=== PATIENT | female | born 1960 | race African-American/Black ===

== ENCOUNTER 2017-05-12 15:03 | Emergency (ER) | payer MEDICAID ==
[~2017-05-12] VITALS: Ht 152.4 cm; Wt 98.0 kg
[~2017-05-12 15:03] MED LIST: ALBU17AE26; AMLO5TAB4; COLC0.6T66; FLUT1DIS3; HYDR-1348; OMEP20CA4; VIC
[2017-05-12] MEDS ORDERED: KETOROLAC 60MG/2ML VIAL IM STA (20:46)
[2017-05-12 21:36] LABS: BASOPHILS % 1.1 % (0.0-2.0); EOSINOPHILS % 1.9 % (0.0-5.0); HEMATOCRIT. 41.4 % (36.0-48.0); HEMOGLOBIN. 14.2 g/dL (12.0-16.0); LYMPHOCYTES % 37.7 % (20.0-50.0); MEAN CORPUSCULAR HEMOGLOBIN 31.6 pg (28.0-32.0); MEAN CORPUSCULAR VOLUME 92.3 fL (81.0-99.0); MEAN PLATELET VOLUME 9.1 fl (7.4-10.4); MONOCYTES % 8.4 % (2.0-8.0); NEUTROPHILS % 50.9 % (40.0-76.0); PLATELET 188 x1000/uL (130-400); RED BLOOD CELL COUNT 4.49 mill/uL (4.2-5.4); RED CELL DISTRIBUTION WIDTH 13.9 % (11.6-14.6)
[2017-05-12 21:42] LABS: PROTHROMBIN TIME 10.2 sec (9.4-11.6)
[2017-05-12 21:44] LABS: CHLORIDE 106 mEq/L (98-107)
[2017-05-12 21:54] LABS: CARBON DIOXIDE 28 mEq/L (21-32); TROPONIN I < 0.02 ng/mL (0.00-0.04)
[2017-05-12 22:40] LABS: CLARITY URINE CLOUDY (CLEAR); COLOR URINE YELLOW (YELLOW); GLUCOSE URINE NEGATIVE (NEGATIVE); KETONES URINE NEGATIVE (NEGATIVE); LEUKOCYTE ESTERASE URINE 3+ (NEGATIVE); NITRITE URINE NEGATIVE (NEGATIVE); OCCULT BLOOD URINE 2+ (NEGATIVE); PROTEIN URINE NEGATIVE (NEGATIVE)
[2017-05-12 23:40] VITALS: BP 129/82
== END 2017-05-12 23:50 | disposition home or self-care (01) ==
LOC: ER 22:28
DX: R07.89 Other chest pain (principal); J01.90 Acute sinusitis, unspecified; N39.0 Urinary tract infection, site not specified; R51 Headache; I10 Essential (primary) hypertension; J45.909 Unspecified asthma, uncomplicated; F17.210 Nicotine dependence, cigarettes, uncomplicated; Z87.19 Personal history of other diseases of the digestive system
CPT/HCPCS: 36415; 71010; 80053; 81001; 83880; 84484; 85025; 85610; 93005; 96372; 99285; J1885; Z7610

== ENCOUNTER 2017-10-22 18:12 | Emergency (ER) | payer MEDICAID, OTHER ==
[~2017-10-22] VITALS: Ht 160 cm; Wt 103.0 kg
[2017-10-22 20:14] VITALS: BP 121/79
[2017-10-22] MEDS: ACETAMINOPHEN 325MG TABLET PO ONE (20:47)
[2017-10-22 21:33] LABS: EOSINOPHILS % 2.1 % (0.0-5.0); HEMATOCRIT. 38.8 % (36.0-48.0); HEMOGLOBIN. 12.9 g/dL (12.0-16.0); LYMPHOCYTES % 39.1 % (20.0-50.0); MEAN CORPUSCULAR HEMOGLOBIN 30.4 pg (28.0-32.0); MEAN CORPUSCULAR VOLUME 91.4 fL (81.0-99.0); MEAN PLATELET VOLUME 8.6 fl (7.4-10.4); MONOCYTES % 7.5 % (2.0-8.0); NEUTROPHILS % 50.3 % (40.0-76.0); PLATELET 195 x1000/uL (130-400); RED BLOOD CELL COUNT 4.24 mill/uL (4.2-5.4); RED CELL DISTRIBUTION WIDTH 13.7 % (11.6-14.6)
[2017-10-22 21:38] LABS: CARBON DIOXIDE 25 mEq/L (21-32); CHLORIDE 107 mEq/L (98-107)
== END 2017-10-22 22:50 | disposition home or self-care (01) ==
LOC: ER 19:25
DX: J20.9 Acute bronchitis, unspecified (principal); J45.909 Unspecified asthma, uncomplicated; I10 Essential (primary) hypertension; F17.200 Nicotine dependence, unspecified, uncomplicated; G43.909 Migraine, unspecified, not intractable, without status migrainosus
CPT/HCPCS: 36415; 71045; 80048; 85025; 87804; 93005; 99285

== ENCOUNTER 2018-03-03 13:23 | Emergency (ER) | payer MEDICAID, OTHER ==
[~2018-03-03] VITALS: Ht 172.7 cm; Wt 100.0 kg
[2018-03-03 15:21] LABS: BASOPHILS % 0.7 % (0.0-2.0); EOSINOPHILS % 1.3 % (0.0-5.0); HEMATOCRIT. 38.5 % (36.0-48.0); LYMPHOCYTES % 37.2 % (20.0-50.0); MEAN CORPUSCULAR HEMOGLOBIN 30.8 pg (28.0-32.0); MEAN CORPUSCULAR VOLUME 91.7 fL (81.0-99.0); MEAN PLATELET VOLUME 8.9 fl (7.4-10.4); MONOCYTES % 6.1 % (2.0-8.0); NEUTROPHILS % 54.7 % (40.0-76.0); PLATELET 181 x1000/uL (130-400); RED CELL DISTRIBUTION WIDTH 14.2 % (11.6-14.6)
[2018-03-03 15:25] LABS: CHLORIDE 107 mEq/L (98-107)
[2018-03-03 15:30] LABS: PARTIAL THROMBOPLASTIN TIME 24.6 sec (23.4-31.0); PROTHROMBIN TIME 10.5 sec (9.4-11.6)
[2018-03-03] MEDS ORDERED: NICOTINE 21MG PATCH TD ONE (15:30)
[2018-03-03 15:35] LABS: CLARITY URINE CLEAR (CLEAR); COLOR URINE YELLOW (YELLOW); KETONES URINE NEGATIVE (NEGATIVE); LEUKOCYTE ESTERASE URINE NEGATIVE (NEGATIVE); NITRITE URINE NEGATIVE (NEGATIVE); OCCULT BLOOD URINE TRACE (NEGATIVE); PH URINE 6.5 (4.5-8.0); PROTEIN URINE NEGATIVE (NEGATIVE); SPECIFIC GRAVITY URINE 1.017 (1.005-1.030)
[2018-03-03] MEDS: ONDANSETRON HCL 4MG/2ML VIAL IV STA ×2 (15:45→16:00)
[2018-03-03] MEDS: MORPHINE SULFATE 4 MG/ML CPJ (NOT FOR IM USE) IV STA ×2 (15:45→16:00)
[2018-03-03] MEDS: SODIUM CHLORIDE 0.9% 1,000 ML IV ONE ×2 (15:45→16:00)
[2018-03-03] MEDS: KETOROLAC 30MG/ML VIAL IV STA ×2 (15:45→16:00)
[2018-03-03 15:49] LABS: ETHANOL BLOOD < 10 mg/dL
[2018-03-03 15:50] LABS: *BENZODIAZEPINES SCREEN URINE NEGATIVE (NEGATIVE); *COCAINE SCREEN URINE NEGATIVE (NEGATIVE)
[2018-03-03 15:51] LABS: *AMPHETAMINES SCREEN URINE NEGATIVE (NEGATIVE); *BARBITURATES SCREEN URINE NEGATIVE (NEGATIVE); CANNABINOID URINE SCREEN NEGATIVE (NEGATIVE); METHADONE URINE SCREEN NEGATIVE (NEGATIVE); OPIATES URINE SCREEN NEGATIVE (NEGATIVE); PHENCYCLIDINE URINE SCREEN NEGATIVE (NEGATIVE)
[2018-03-03 18:38] VITALS: BP 110/58
== END 2018-03-03 19:15 | disposition home or self-care (01) ==
LOC: ER 14:18
DX: N20.0 Calculus of kidney (principal); J42 Unspecified chronic bronchitis; J45.909 Unspecified asthma, uncomplicated; I10 Essential (primary) hypertension; G43.909 Migraine, unspecified, not intractable, without status migrainosus; F17.290 Nicotine dependence, other tobacco product, uncomplicated
CPT/HCPCS: 36415; 71045; 74176; 76700; 80053; 80305; 81003; 81025; 83690; 83880; 84484; 85025; 85610; 85730; 93005; 96374; 96375; 99285; 99406; G0482; J1885; J2270; J2405; J7030; Z7610

== ENCOUNTER 2018-10-16 12:29 | Emergency (ER) | payer MEDICAID, OTHER ==
[~2018-10-16] VITALS: Ht 160 cm; Wt 97.0 kg
[2018-10-16] MEDS ORDERED: IPRATROPIUM BROMIDE (0.02%) 0.5MG/2.5ML NEB HHN STA (18:23)
[2018-10-16] MEDS ORDERED: ALBUTEROL (0.083%) 2.5MG/3ML NEB HHN STA (18:23)
[2018-10-16] MEDS ORDERED: PREDNISONE 20MG TABLET PO STA (18:23)
[2018-10-16 19:49] VITALS: BP 132/81
== END 2018-10-16 19:50 | disposition home or self-care (01) ==
LOC: ER 12:54
DX: M79.671 Pain in right foot (principal); R51 Headache; J45.901 Unspecified asthma with (acute) exacerbation; F17.200 Nicotine dependence, unspecified, uncomplicated; I10 Essential (primary) hypertension; Z79.899 Other long term (current) drug therapy
CPT/HCPCS: 71045; 73630; 94640; 99283; J7512; J7611

== ENCOUNTER 2018-10-31 11:28 | Emergency (ER) | payer OTHER, MEDICAID ==
[~2018-10-31] VITALS: Ht 160 cm; Wt 98.0 kg
[2018-10-31 11:40] VITALS: BP 185/78
[2018-10-31] MEDS ORDERED: PREDNISONE 20MG TABLET PO STA (12:39)
[2018-10-31] MEDS ORDERED: LEVOFLOXACIN 500MG TABLET PO ONE (12:45)
[2018-10-31] MEDS ORDERED: IPRATROPIUM/ALBUTEROL 0.5-3(2.5)MG/3ML NEB HHN ONE (12:45)
[2018-10-31] MEDS ORDERED: CLONIDINE 0.1MG TABLET PO ONE (12:45)
== END 2018-10-31 14:35 | disposition home or self-care (01) ==
LOC: ER 11:28
DX: S93.401A Sprain of unspecified ligament of right ankle, initial encounter (principal); J45.901 Unspecified asthma with (acute) exacerbation; J18.9 Pneumonia, unspecified organism; J40 Bronchitis, not specified as acute or chronic; I10 Essential (primary) hypertension; F17.200 Nicotine dependence, unspecified, uncomplicated; Z79.899 Other long term (current) drug therapy; X58.XXXA Exposure to other specified factors, initial encounter; Y93.89 Activity, other specified; Y92.89 Other specified places as the place of occurrence of the external cause; Y99.8 Other external cause status
CPT/HCPCS: 71045; 94640; 99284; 99406; J7512; J7620; Z7610

== ENCOUNTER 2019-03-27 10:38 | Emergency (ER) | payer MEDICAID, OTHER ==
[~2019-03-27] VITALS: Ht 160 cm; Wt 100.0 kg
[2019-03-27] MEDS ORDERED: IBUPROFEN 600MG TABLET PO ONE (11:30)
[2019-03-27 11:40] VITALS: BP 126/72
== END 2019-03-27 13:18 | disposition home or self-care (01) ==
LOC: ER 10:55
DX: S80.02XA Contusion of left knee, initial encounter (principal); W22.8XXA Striking against or struck by other objects, initial encounter; Y93.89 Activity, other specified; Y92.89 Other specified places as the place of occurrence of the external cause
CPT/HCPCS: 73560; 73630; 99283

== ENCOUNTER 2019-05-20 18:21 | Emergency (ER) | payer OTHER ==
[~2019-05-20] VITALS: Ht 160 cm; Wt 100.0 kg
[2019-05-20 21:16] VITALS: BP 181/88
== END 2019-05-20 21:18 | disposition home or self-care (01) ==
LOC: ER 18:21
DX: S80.02XA Contusion of left knee, initial encounter (principal); M25.552 Pain in left hip; I10 Essential (primary) hypertension; W01.0XXA Fall on same level from slipping, tripping and stumbling without subsequent striking against object, initial encounter; Y93.89 Activity, other specified; Y92.89 Other specified places as the place of occurrence of the external cause; Y92.512 Supermarket, store or market as the place of occurrence of the external cause
CPT/HCPCS: 72170; 73560; 99283

== ENCOUNTER 2019-05-23 09:44 | Emergency (ER) | payer OTHER ==
[~2019-05-23] VITALS: Ht 160 cm; Wt 100.0 kg
[2019-05-23] MEDS ORDERED: KETOROLAC 60MG/2ML VIAL IM ONE (11:30)
[2019-05-23 13:33] VITALS: BP 127/91
== END 2019-05-23 13:34 | disposition home or self-care (01) ==
LOC: ER 09:47
DX: M25.532 Pain in left wrist (principal); M25.572 Pain in left ankle and joints of left foot; M79.622 Pain in left upper arm; M25.552 Pain in left hip; M79.10 Myalgia, unspecified site; I10 Essential (primary) hypertension; F17.200 Nicotine dependence, unspecified, uncomplicated; Z79.899 Other long term (current) drug therapy; W01.0XXA Fall on same level from slipping, tripping and stumbling without subsequent striking against object, initial encounter; Y93.89 Activity, other specified; Y92.89 Other specified places as the place of occurrence of the external cause; Y99.8 Other external cause status
CPT/HCPCS: 73060; 73110; 73610; 96372; 99283; J1885

== ENCOUNTER 2019-05-29 08:54 | Emergency (ER) | payer MEDICAID, OTHER ==
[~2019-05-29] VITALS: Ht 160 cm; Wt 100.0 kg
[2019-05-29 09:05] VITALS: BP 154/90
== END 2019-05-29 10:38 | disposition home or self-care (01) ==
LOC: ER 09:22
DX: J06.9 Acute upper respiratory infection, unspecified (principal); G44.89 Other headache syndrome; M25.552 Pain in left hip; M54.5 Low back pain
CPT/HCPCS: 99282

== ENCOUNTER 2020-03-14 08:55 | Emergency (ER) | payer MEDICAID ==
[~2020-03-14] VITALS: Ht 160 cm; Wt 99.7 kg
[2020-03-14] MEDS ORDERED: CEPHALEXIN 250MG CAPSULE PO ONE (10:00)
[2020-03-14 10:29] VITALS: BP 122/86
== END 2020-03-14 10:34 | disposition home or self-care (01) ==
LOC: ER 08:55
DX: N76.4 Abscess of vulva (principal); I10 Essential (primary) hypertension; J45.909 Unspecified asthma, uncomplicated; Z79.899 Other long term (current) drug therapy
CPT/HCPCS: 99283

== ENCOUNTER 2020-06-05 17:48 | Emergency (ER) | payer MEDICAID ==
[~2020-06-05] VITALS: Ht 160 cm; Wt 105.0 kg
[2020-06-05 17:55] VITALS: BP 130/75
[2020-06-05] MEDS ORDERED: TETANUS, DIPHTHERIA, PERTUSSIS VAC/PF 0.5ML (>7YR OLD) IM ONE (20:45)
[2020-06-05] MEDS ORDERED: ACETAMINOPHEN 325MG TABLET PO ONE (20:45)
[2020-06-05] MEDS ORDERED: LIDOCAINE HCL/PF 1% 10 MG/ML 5ML VIAL IJ ONE (20:45)
[2020-06-05] MEDS ORDERED: CEPHALEXIN 250MG CAPSULE PO ONE (21:30)
== END 2020-06-05 22:29 | disposition home or self-care (01) ==
LOC: ER 17:48
DX: N76.4 Abscess of vulva (principal); I10 Essential (primary) hypertension; Z23 Encounter for immunization
CPT/HCPCS: 10060; 90471; 90715; 99283; J3490

== ENCOUNTER 2021-05-04 10:30 | Emergency (ER) | payer MEDICAID ==
[~2021-05-04] VITALS: Ht 160 cm; Wt 110.0 kg
[2021-05-04] MEDS ORDERED: KETOROLAC 30MG/ML VIAL IV STA (11:21)
[2021-05-04 11:28] LABS: BASOPHILS % 0.8 % (0.0-2.0); EOSINOPHILS % 0.7 % (0.0-5.0); HEMATOCRIT. 39.3 % (36.0-48.0); HEMOGLOBIN. 13.2 g/dL (12.0-16.0); LYMPHOCYTES % 25.1 % (20.0-50.0); MEAN CORPUSCULAR HEMOGLOBIN 30.9 pg (28.0-32.0); MEAN CORPUSCULAR VOLUME 91.9 fL (81.0-99.0); MEAN PLATELET VOLUME 8.2 fl (7.4-10.4); MONOCYTES % 6.6 % (2.0-8.0); NEUTROPHILS % 66.8 % (40.0-76.0); PLATELET 198 x1000/uL (130-400); RED BLOOD CELL COUNT 4.28 mill/uL (4.2-5.4); RED CELL DISTRIBUTION WIDTH 14.2 % (11.6-14.6)
[2021-05-04] MEDS ORDERED: SODIUM CHLORIDE 0.9% 1,000 ML IV ONE (11:30)
[2021-05-04 11:33] LABS: CHLORIDE 110 mEq/L (98-107)
[2021-05-04 11:39] LABS: PROTHROMBIN TIME 10.3 sec (9.6-11.0)
[2021-05-04 12:02] LABS: CLARITY URINE CLEAR (CLEAR); COLOR URINE YELLOW (YELLOW); KETONES URINE NEGATIVE (NEGATIVE); LEUKOCYTE ESTERASE URINE NEGATIVE (NEGATIVE); NITRITE URINE NEGATIVE (NEGATIVE); OCCULT BLOOD URINE 1+ (NEGATIVE); PH URINE 5.5 (4.5-8.0); PROTEIN URINE NEGATIVE (NEGATIVE); SPECIFIC GRAVITY URINE 1.015 (1.005-1.030)
[2021-05-04] MEDS ORDERED: OMEP20CA14 MT (14:00)
[2021-05-04 14:11] VITALS: BP 142/69
== END 2021-05-04 14:13 | disposition home or self-care (01) ==
LOC: ER 10:30
DX: R10.11 Right upper quadrant pain (principal); E86.0 Dehydration; J45.909 Unspecified asthma, uncomplicated; I10 Essential (primary) hypertension; Z98.890 Other specified postprocedural states; Z90.49 Acquired absence of other specified parts of digestive tract; Z87.442 Personal history of urinary calculi; Z79.899 Other long term (current) drug therapy
CPT/HCPCS: 36415; 71045; 76705; 80053; 81003; 83690; 85025; 85610; 93005; 96361; 96374; 99285; J1885; J7030; Z7610

== ENCOUNTER 2021-05-16 20:44 | Emergency (ER) | payer MEDICAID, OTHER ==
[~2021-05-16] VITALS: Ht 160 cm; Wt 110.0 kg
[~2021-05-16 20:44] MED LIST changes: +OMEP20CA14 MT
[2021-05-16] MEDS ORDERED: HYDROCODONE/ACETAMINOPHEN 5/325MG TABLET PO ONE (22:30)
[2021-05-16] MEDS ORDERED: LIDOCAINE HCL/PF 1% 10 MG/ML 5ML VIAL INFIL ONE (22:30)
[2021-05-17] MEDS ORDERED: CEPH500C2 PO (00:43)
[2021-05-17] MEDS ORDERED: SULF1TAB48 PO (00:43)
[2021-05-17] MEDS ORDERED: BACITRACIN ZINC OINT UDPKT TOP ONE (00:45)
[2021-05-17 01:05] VITALS: BP 165/82
== END 2021-05-17 01:10 | disposition home or self-care (01) ==
LOC: ER 20:54
DX: H60.02 Abscess of left external ear (principal); Q18.1 Preauricular sinus and cyst; I10 Essential (primary) hypertension; J45.909 Unspecified asthma, uncomplicated
CPT/HCPCS: 10060; 99283; J3490; Z7610

== ENCOUNTER 2021-05-19 20:28 | Emergency (ER) | payer OTHER, MEDICAID ==
[~2021-05-19] VITALS: Ht 160 cm; Wt 109.0 kg
[~2021-05-19 20:28] MED LIST changes: +CEPH500C2 PO; +SULF1TAB48 PO
[2021-05-19 21:01] VITALS: BP 167/126
[2021-05-19] MEDS ORDERED: BACITRACIN ZINC OINT UDPKT TOP ONE (22:30)
[2021-05-19] MEDS ORDERED: ACETAMINOPHEN 325MG TABLET PO ONE (22:30)
== END 2021-05-19 22:44 | disposition home or self-care (01) ==
LOC: ER 20:28
DX: Z48.00 Encounter for change or removal of nonsurgical wound dressing (principal); H92.02 Otalgia, left ear; I10 Essential (primary) hypertension; J45.909 Unspecified asthma, uncomplicated; Z87.19 Personal history of other diseases of the digestive system; Z87.442 Personal history of urinary calculi
CPT/HCPCS: 99282

== ENCOUNTER 2021-11-14 13:01 | Emergency (ER) | payer MEDICAID, OTHER ==
[~2021-11-14] VITALS: Ht 160 cm; Wt 110.9 kg
[2021-11-14 13:18] VITALS: BP 129/74
[2021-11-14] MEDS ORDERED: TOPUD PO (14:31)
== END 2021-11-14 14:57 | disposition home or self-care (01) ==
LOC: ER 13:01
DX: S80.02XA Contusion of left knee, initial encounter (principal); X58.XXXA Exposure to other specified factors, initial encounter; Y93.89 Activity, other specified; Y92.89 Other specified places as the place of occurrence of the external cause
CPT/HCPCS: 72220; 73560; 99284

== ENCOUNTER 2022-01-23 10:39 | Emergency (ER) | payer MEDICAID, OTHER ==
[~2022-01-23] VITALS: Ht 160 cm; Wt 100.0 kg
[~2022-01-23 10:39] MED LIST changes: +TOPUD PO
[2022-01-23 10:43] VITALS: BP 142/89
[2022-01-23 11:58] LABS: CLARITY URINE CLEAR (CLEAR); COLOR URINE YELLOW (YELLOW); KETONES URINE NEGATIVE (NEGATIVE); LEUKOCYTE ESTERASE URINE NEGATIVE (NEGATIVE); NITRITE URINE NEGATIVE (NEGATIVE); OCCULT BLOOD URINE TRACE (NEGATIVE); PH URINE 6.5 (4.5-8.0); PROTEIN URINE NEGATIVE (NEGATIVE); SPECIFIC GRAVITY URINE 1.019 (1.005-1.030)
[2022-01-23] MEDS ORDERED: IBUPROFEN 600MG TABLET PO NR (12:15)
[2022-01-23] MEDS ORDERED: ACETAMINOPHEN 325MG TABLET PO STA (12:37)
[2022-01-23] MEDS ORDERED: SULF1TAB48 PO (14:37)
[2022-01-23] MEDS ORDERED: ACET-2708 PO (14:37)
[2022-01-23] MEDS ORDERED: CEPH500T MT (14:37)
== END 2022-01-23 15:08 | disposition home or self-care (01) ==
LOC: ER 10:39
DX: M17.12 Unilateral primary osteoarthritis, left knee (principal); N76.4 Abscess of vulva; I10 Essential (primary) hypertension; J45.909 Unspecified asthma, uncomplicated
CPT/HCPCS: 73562; 81003; 99284

== ENCOUNTER 2022-07-08 11:19 | Emergency (ER) | payer OTHER ==
[~2022-07-08] VITALS: Ht 167.6 cm; Wt 101.0 kg
[~2022-07-08 11:19] MED LIST changes: +ACET-2708 PO; +CEPH500T MT
[2022-07-08 11:21] VITALS: BP 167/85
[2022-07-08] MEDS ORDERED: MAGNESIUM/ALUMINUM HYDROXIDE/SIMETHICONE 30ML UDC PO STA (13:02)
[2022-07-08] MEDS ORDERED: VISCOUS LIDOCAINE 2% 15 ML UDC PO STA (13:02)
[2022-07-08] MEDS ORDERED: FAMOTIDINE 20MG TABLET PO ONE (13:15)
[2022-07-08 13:22] LABS: CLARITY URINE CLEAR (CLEAR); COLOR URINE YELLOW (YELLOW); KETONES URINE NEGATIVE (NEGATIVE); LEUKOCYTE ESTERASE URINE 2+ (NEGATIVE); NITRITE URINE NEGATIVE (NEGATIVE); OCCULT BLOOD URINE 2+ (NEGATIVE); PROTEIN URINE NEGATIVE (NEGATIVE); UROBILINOGEN URINE 0.2 E.U./dL (0.2-1.0)
[2022-07-08 13:55] LABS: BASOPHILS % 0.5 % (0.0-2.0); EOSINOPHILS % 1.3 % (0.0-5.0); HEMATOCRIT. 41.4 % (36.0-48.0); HEMOGLOBIN. 13.9 g/dL (12.0-16.0); LYMPHOCYTES % 37.1 % (20.0-50.0); MEAN CORPUSCULAR HEMOGLOBIN 31.1 pg (28.0-32.0); MEAN PLATELET VOLUME 8.4 fl (7.4-10.4); NEUTROPHILS % 54.1 % (40.0-76.0); PLATELET 189 x1000/uL (130-400); RED BLOOD CELL COUNT 4.45 mill/uL (4.2-5.4)
[2022-07-08 14:01] LABS: CHLORIDE 105 mEq/L (98-107)
[2022-07-08] MEDS ORDERED: FAMO20TA8 PO (14:54)
[2022-07-08] MEDS ORDERED: POLY17PO3 MT (15:07)
== END 2022-07-08 15:25 | disposition home or self-care (01) ==
LOC: ER 11:19
DX: R10.11 Right upper quadrant pain (principal); I10 Essential (primary) hypertension; R94.31 Abnormal electrocardiogram [ECG] [EKG]
CPT/HCPCS: 36415; 74176; 76705; 80053; 81003; 84484; 85025; 93005; 99285

== ENCOUNTER 2022-09-28 13:25 | Emergency (ER) | payer MEDICAID, OTHER ==
[~2022-09-28] VITALS: Ht 160 cm; Wt 105.0 kg
[~2022-09-28 13:25] MED LIST changes: +FAMO20TA8 PO; +POLY17PO3 MT
[2022-09-28 13:35] VITALS: BP 155/99
[2022-09-28] MEDS ORDERED: IBUPROFEN 600MG TABLET PO STA (18:36)
[2022-09-28 18:58] LABS: BASOPHILS % 0.6 % (0.0-2.0); EOSINOPHILS % 2.1 % (0.0-5.0); HEMATOCRIT. 41.3 % (36.0-48.0); HEMOGLOBIN. 14.1 g/dL (12.0-16.0); LYMPHOCYTES % 37.2 % (20.0-50.0); MEAN CORPUSCULAR HEMOGLOBIN 31.5 pg (28.0-32.0); MEAN CORPUSCULAR VOLUME 92.3 fL (81.0-99.0); MEAN PLATELET VOLUME 8.3 fl (7.4-10.4); MONOCYTES % 8.2 % (2.0-8.0); NEUTROPHILS % 51.9 % (40.0-76.0); PLATELET 192 x1000/uL (130-400); RED BLOOD CELL COUNT 4.47 mill/uL (4.2-5.4)
[2022-09-28 19:07] LABS: CHLORIDE 106 mEq/L (98-107)
[2022-09-29] MEDS ORDERED: CYCL10TA21 MT (00:09)
[2022-09-29] MEDS ORDERED: IBUP-2029 MT (00:09)
== END 2022-09-29 00:19 | disposition home or self-care (01) ==
LOC: ER 13:50
DX: R07.89 Other chest pain (principal); J45.909 Unspecified asthma, uncomplicated; I10 Essential (primary) hypertension; Z79.899 Other long term (current) drug therapy
CPT/HCPCS: 36415; 71045; 80053; 83880; 84484; 85025; 93005; 99285

== ENCOUNTER 2024-05-08 11:18 | Emergency (ER) | payer OTHER ==
[~2024-05-08] VITALS: Ht 160 cm; Wt 100.0 kg
[~2024-05-08 11:18] MED LIST changes: +CYCL10TA21 MT; +IBUP-2029 MT
[2024-05-08 11:36] VITALS: O2SAT 99
[2024-05-08] MEDS: MAGNESIUM/ALUMINUM HYDROXIDE/SIMETHICONE 30ML UDC PO STA (12:09)
[2024-05-08 12:34] LABS: BASOPHILS % 0.3 % (0.0-2.0); EOSINOPHILS % 1.6 % (0.0-5.0); HEMATOCRIT. 36.7 % (36.0-48.0); LYMPHOCYTES % 22.9 % (20.0-50.0); MEAN CORPUSCULAR HEMOGLOBIN 30.3 pg (28.0-32.0); MEAN CORPUSCULAR HGB CONC 32.8 g/dL (31.0-37.0); MEAN CORPUSCULAR VOLUME 92.3 fL (81.0-99.0); MEAN PLATELET VOLUME 8.4 fl (7.4-10.4); MONOCYTES % 7.9 % (2.0-8.0); NEUTROPHILS % 67.3 % (40.0-76.0); PLATELET 265 x1000/uL (130-400); RED BLOOD CELL COUNT 3.98 mill/uL (4.2-5.4); RED CELL DISTRIBUTION WIDTH 13.2 % (11.6-14.6)
[2024-05-08 12:43] LABS: CARBON DIOXIDE 25 mEq/L (21-32); CHLORIDE 109 mEq/L (98-107); POTASSIUM 3.5 mEq/L (3.5-5.1); SODIUM 141 mEq/L (136-145)
[2024-05-08 12:44] LABS: CALCIUM 9.8 mg/dL (8.7-10.4)
[2024-05-08 12:48] LABS: CREATININE 1.2 mg/dL (0.6-1.0)
[2024-05-08 12:49] LABS: GLUCOSE 142 mg/dL (70-105); UREA NITROGEN BLOOD 9 mg/dL (9-23)
[2024-05-08 12:51] LABS: ALANINE AMINOTRANSFERASE 24 IU/L (10-49); ALBUMIN 4.7 g/dL (3.2-4.8); ASPARTATE AMINOTRANSFERASE 21 IU/L (<34); BILIRUBIN TOTAL 0.3 mg/dL (0.1-1.0); PROTEIN TOTAL 7.9 g/dL (6.0-8.3)
[2024-05-08 12:53] LABS: BILIRUBIN DIRECT < 0.1 mg/dL (<=3.0)
[2024-05-08 14:21] LABS: CLARITY URINE CLEAR (CLEAR); COLOR URINE YELLOW (YELLOW); GLUCOSE URINE NEGATIVE (NEGATIVE); KETONES URINE NEGATIVE (NEGATIVE); LEUKOCYTE ESTERASE URINE NEGATIVE (NEGATIVE); NITRITE URINE NEGATIVE (NEGATIVE); OCCULT BLOOD URINE NEGATIVE (NEGATIVE); PROTEIN URINE NEGATIVE (NEGATIVE); SPECIFIC GRAVITY URINE 1.011 (1.005-1.030); UROBILINOGEN URINE 0.2 E.U./dL (0.2-1.0)
[2024-05-08 16:09] VITALS: BP 145/89; PULSE 86; RESP 18; TEMP 98.9
== END 2024-05-08 17:42 | disposition home or self-care (01) ==
LOC: ER 11:18
DX: N23 Unspecified renal colic (principal); J45.909 Unspecified asthma, uncomplicated; I10 Essential (primary) hypertension; Z79.899 Other long term (current) drug therapy; Z20.822 Contact with and (suspected) exposure to COVID-19
CPT/HCPCS: 36415; 71045; 74176; 80048; 80076; 81003; 81025; 85025; 87426; 99284